=== PATIENT | female | born 1960 | race Caucasian/White ===

== ENCOUNTER 2019-03-15 14:45 | Emergency (ER) | payer SELFPAY ==
[2019-03-15 14:48] VITALS: BP 141/71; PULSE 71; RESP 16; TEMP 36.6; O2SAT 99
--- NOTE | 2019-03-15 16:36 | ED.GENADUL_ITS ---
Discharge Plan Disposition Patient Disposition: HOME Condition: Stable Discharge Details Chief Complaint: Nk/Back Pain Clinical Impression: Low back pain Primary Care Provider: None,None ED Provider: Aure Sarkar Home Meds and New Rx's Prescriptions: New cyclobenzaprine 10 mg tablet 10 mg PO BID PRN (Reason: muscle spasm) Qty: 8 RF: 0 Discharge Instructions Instructions: Cyclobenzaprine (By mouth), Low Back Strain (ED) Additional Instructions: Please return immediately to the emergency department if you develop any new or worsening symptoms, if your symptoms do not improve as expected, or if you become otherwise concerned. It is extremely important that you call as soon as possible to make an appointment to be seen in follow-up for this visit by a primary care doctor. Stand Alone Forms: Work Release Discharge Data Discharge Date/Time-TO BE ENTERED AT DEPARTURE: 03/15/19 16:45 Medical Decision Making Leonor Gutierrez is a 58-year-old woman with a history of fibromyalgia who presents the emergency department with acute on chronic mid low back pain that began 4 days ago after twisting injury when she tripped without falling. On exam patient is very well and nontoxic appearing, appears comfortable. Midline tenderness at the L5-S1 area that patient reports is her usual area of pain but worse than usual. No crepitus or deformity. No paraspinal tenderness to palpation. Motor 5 out of 5 bilateral lower extremities. DP pulses intact and symmetric, feet warm and well-perfused bilaterally. Normal gait. Exam/history is not consistent with cauda equina syndrome, epidural abscess/hematoma, other spinal cord involvement or compression, sepsis, infectious etiology of symptoms, CVA. Concern for disc herniation versus muscle spasm versus other nonemergent muscular skeletal etiology. I did offer patient x-rays given midline tenderness for rule out possible pathologic fracture, however she declined this testing at this time. She also declined steroids, but accepted muscle relaxant for treatment. I had a lengthy discussion with the patient regarding return to emergency department precautions, importance of outpatient follow-up, and home care. Patient states that she just recently moved to the area and does not currently have a PCP. Patient placed on care management list for establishment of PCP. Patient verbalized understanding the plan was amenable. All questions were answered. Patient was discharged home with clear plan for outpatient follow-up. Medical Records Medical records reviewed: Yes I reviewed the patient's medical records. HPI General Mode of arrival: ambulatory . Date/Time Provider Initiated Documentation: 03/15/19 14:52 . Limitations to Documentation: no limitations . Information obtained by: patient . HPI Narrative: Leonor Gutierrez is a 58-year-old woman with a history of fibromyalgia presenting to the emergency department with low back pain. Patient reports that 4 days ago she was at work when she tripped on a rubber mat on the floor, twisting her torso. She did not fall to the ground, no other injury. Patient reports that she has chronic pain in her mid low back secondary to her fibromyalgia, however she reports that since this twisting injury 4 days ago her typical mid low back pain has been worse. Patient reports that pain is worse at night when she is trying to get to sleep. She also notes that at times pain radiates from her mid lower back into her right leg. Patient reports that she has been able to walk without issue, but that standing for prolonged periods of time also seems to worsen her pain. Patient reports that she has had similar episodes of worsening of her chronic back pain in the past. Patient denies any other pain, shortness of breath, cough, fever, vomiting, diarrhea, urinary hesitancy, urinary incontinence, c onstipation, diarrhea, perianal sensation changes, sensation changes in the saddle region, other numbness, weakness, rash. Patient is a current smoker, denies alcohol, denies any history of IV drug use. Denies blood thinners other than ibuprofen. Related Data Home Medications Medication Instructions Recorded Confirmed cyclobenzaprine 10 mg PO BID PRN #8 tab 03/15/19 Previous Rx's Medication Instructions Recorded cyclobenzaprine 10 mg PO BID PRN #8 tab 03/15/19 Allergies Allergy/AdvReac Type Severity Reaction Status Date / Time No Known Allergies Allergy Unverified 03/15/19 14:53 General Stated Complaint: Nk/Back Pain RENETTA: 4 Review of Systems Review of Systems Narrative: Constitutional: denies fevers Eyes: denies eye pain ENT: denies facial pain, dental pain, sore throat Cardiovascular: denies chest pain, edema Respiratory: denies SOB, cough GI: denies abdominal pain, vomiting, diarrhea, constipation : denies flank pain, difficulty with urination, dysuria, incontinence MSK: denies neck pain, arthralgias, reports back pain, leg pain as per HPI Skin: denies rash Neuro: denies headaches, perianal numbness, saddle numbness, numbness the extremities, weakness PFSH Social History Substance use type: does not use Exam Narrative Exam Narrative: Constitutional: well and [id number], pleasant, conversing normally HENT: head atraumatic/normocephalic/normal inspection, mucous membranes moist Eyes: conjunctiva normal, sclera normal, pupils 3mm b/l Neck: no stridor, normal ROM, trachea midline Resp: normal work of breathing, LCTAB Cardio: normal rate, normal rhythm, no murmur appreciated GI: abdomen soft, non-tender, non-distended Back: normal inspection, no rash, midline tenderness at the L5-S1 area that patient reports is her usual area of pain but worse than usual, no crepitus or deformity, no paraspinal tenderness to palpation Skin: warm, dry, normal color, no rash Neuro: alert, not altered, grossly non-focal, normal tone, motor 5 out of 5 bilateral lower extremities, normal sensation of the lower extremities and saddle region, normal gait Ext: no edema, DP pulses intact and symmetric, feet warm and well-perfused bilaterally Psych: normal mood, normal affect, normal behavior Course Vital Signs Vital signs: Vital Signs Temperature 36.6 C 03/15/19 14:48 Pulse 71 03/15/19 14:48 Respiratory Rate 16 03/15/19 14:48 Blood Pressure 141/71 H 03/15/19 14:48 Pulse Oximetry 99 03/15/19 14:48 Temperature 36.6 C 03/15/19 14:48 Temperature Source Skin 03/15/19 14:48 Pulse 71 03/15/19 14:48 Respiratory Rate 16 03/15/19 14:48 Respiratory Effort 03/15/19 14:53 Blood Pressure 141/71 H 03/15/19 14:48 Pulse Oximetry 99 03/15/19 14:48 Oxygen Delivery Method Room Air 03/15/19 14:48 Oxygen Flow Rate 0 03/15/19 14:48 Pain Level 6 03/15/19 14:53 Comment 03/15/19 14:48
== END 2019-03-15 16:45 | disposition home or self-care (01) ==
PROVIDERS: Emergency Provider Student in an Organized Health Care Education/Training Program
DX: M54.5 Low back pain (principal); G89.29 Other chronic pain; W18.49XA Other slipping, tripping and stumbling without falling, initial encounter
CPT/HCPCS: 99283

== ENCOUNTER 2019-05-01 15:55 | Emergency (ER) | payer SELFPAY ==
[2019-05-01 15:58] VITALS: BP 152/76; PULSE 76; RESP 18; TEMP 36.7; O2SAT 98
--- NOTE | 2019-05-01 16:39 | W.ED.GENAD ---
Discharge Plan Disposition Patient Disposition: HOME Condition: Good Discharge Details Chief Complaint: Sorethroat Clinical Impression: URI (upper respiratory infection) Primary Care Provider: None,None ED Provider: Bridget Lawson Home Meds and New Rx's Prescriptions: No Action No Known Home Meds RF: 0 Discharge Instructions Instructions: Upper Respiratory Infection (ED) Additional Instructions: Encourage hydration. Stop smoking. May continue with the Mucinex, [place] pot, Tylenol and/or ibuprofen as needed. If not improved in 1 week please follow-up with your primary care. If you develop difficulty breathing, shortness of breath, inability stay hydrated or other new/worsening symptoms please seek care urgently once again. Her illness is likely viral. Stand Alone Forms: Work Release Discharge Data Discharge Date/Time-TO BE ENTERED AT DEPARTURE: 05/01/19 16:53 Medical Decision Making On exam, patient is resting comfortably, appears nontoxic. Endorses some discomfort with percussion over the maxillary sinuses bilaterally. Normal posterior oropharynx. Lungs are clear. No significant abnormality noted on exam. Encourage smoking cessation. We discussed home and [id number] options for symptom medic management. She is given return precautions. Advise follow-up with primary care in 1 week if not improving. We did discuss expected course. Antibiotic stewardship education was given. All her questions and concerns were addressed she is in agreement with this plan. HPI General Mode of arrival: ambulatory. Date/Time Provider Initiated Documentation: 05/01/19 16:15. Limitations to Documentation: no limitations. Information obtained by: patient and RN notes reviewed. HPI Narrative: Patient is a 58-year-old female past medical history significant for smoking, with chief complaint of sore throat, congestion, cough. Her primary concern is regarding sinus discomfort. She reports that symptoms began 2 days ago. States that yesterday she is running a low-grade fever of 100.2 Fahrenheit. Has been around a number of sick contacts. Denies any difficulty breathing, no shortness of breath. Has been able to stay hydrated. She has been using a [place] pot, Afrin, Mucinex. Related Data Home Medications Medication Instructions Recorded Confirmed Unknown [No Known Home Meds] 05/01/19 05/01/19 Allergies Allergy/AdvReac Type Severity Reaction Status Date / Time No Known Allergies Allergy Unverified 05/01/19 16:01 General Stated Complaint: Sorethroat RENETTA: 4 Review of Systems Constitutional Constitutional: Reports as per HPI, Denies chills, Denies fatigue, Denies fever(s), Denies headache(s) and Denies poor appetite Eyes Eyes: Reports as per HPI, Denies eye discharge and Denies irritation ENT Ears, Nose, Mouth, and Throat: Reports as per HPI and Denies headache(s) Cardiovascular Cardiovascular: Reports as per HPI, Denies chest pain and Denies dyspnea Respiratory Respiratory: Reports as per HPI, Denies change in phlegm color, Denies chest congestion, Reports cough, Denies hemoptysis, Denies excessive phlegm production, Denies pain on inspiration, Denies pain with cough, Denies dyspnea, Denies stridor and Denies wheezing Gastrointestinal Gastrointestinal: Reports as per HPI, Denies abdominal pain, Denies change in bowel habits, Denies nausea and Denies vomiting Integumentary/Breasts Skin/Breast: Reports as per HPI and Denies rash Neurologic Neurologic: Reports as per HPI and Denies headache(s) Endocrine Endocrine: Denies fatigue Allergic/Immunologic Allergic/Immunologic: Denies wheezing [facility] Social History Substance use type: does not use Exam Const General: cooperative, healthy appearing, comfortable, no acute distress, well developed and well groomed Nutritional Appearance: average body habitus and well nourished Orientation: alert and awake [facility] Head: normal to inspection, normocephalic and atraumatic Ears: hearing grossly normal bilaterally, external ears normal and TM's normal bilaterally General nose exam: external nose normal and nares normal Face and sinus: normal facial exam, face symmetric and sinus tenderness maxillary Mouth: oral mucosae normal, lip normal, tongue normal, oropharynx normal and moist mucous membranes Teeth and gingiva: dentition normal Throat: posterior oropharynx normal, tonsils normal and uvula midline Eyes General: appearance normal, both eyes and all related structures Neck Neck: normal visual inspection, full ROM, no lymphadenopathy and no meningeal signs Resp Effort & Inspection: normal respiratory effort, able to speak in complete sentences and no respiratory distress Auscultation: clear to auscultation bilaterally, no rales, no rhonchi and no wheezes Cardio Rate: regular rate Rhythm: regular rhythm Heart Sounds: S1 normal and S2 normal Skin General skin exam: no rashes or lesions noted Neuro General: alert and awake Cognition: normal cognition Speech: speech normal Gait: normal gait Psych Appearance: grossly normal and well kempt Mental Status: mental status grossly normal Speech and Movement: speech and movement normal Course Vital Signs Vital signs: Vital Signs Temperature 36.7 C 05/01/19 15:58 Pulse 76 05/01/19 15:58 Respiratory Rate 18 05/01/19 15:58 Blood Pressure 152/76 H 05/01/19 15:58 Pulse Oximetry 98 05/01/19 15:58 Temperature 36.7 C 05/01/19 15:58 Temperature Source Skin 05/01/19 15:58 Pulse 76 05/01/19 15:58 Respiratory Rate 18 05/01/19 15:58 Respiratory Effort 05/01/19 16:00 Blood Pressure 152/76 H 05/01/19 15:58 Blood Pressure Position Supine 05/01/19 15:58 Pulse Oximetry 98 05/01/19 15:58 Oxygen Delivery Method Room Air 05/01/19 15:58 Oxygen Flow Rate 0 05/01/19 15:58 Pain Level 6 05/01/19 15:58
== END 2019-05-01 16:53 | disposition home or self-care (01) ==
PROVIDERS: Emergency Provider Physician Assistant
DX: J06.9 Acute upper respiratory infection, unspecified (principal); F17.210 Nicotine dependence, cigarettes, uncomplicated
CPT/HCPCS: 99282

== ENCOUNTER 2020-01-06 14:25 | Emergency (ER) | payer SELFPAY ==
[2020-01-06] VITALS (11 sets, daily range): BP systolic 131–149; BP diastolic 73–83; PULSE 72–97; RESP 12–28; TEMP 36.7–36.8; O2SAT 96–99
--- NOTE | 2020-01-06 14:30 | DI.RAD_ITS ---
EXAM: XR PORTABLE CHEST AP CLINICAL HISTORY: SOB TECHNIQUE: 2D digital imaging was performed. COMPARISON: No exams were available for comparison FINDINGS: MEDIASTINUM: Normal. HEART: Normal. PULMONARY VASCULATURE: Normal. LUNGS: Clear. PLEURAL SPACE: No pleural effusion or pneumothorax. BONE:Normal. OTHER FINDINGS:Normal. IMPRESSION: No acute pulmonary findings. DATA REPOSITORY: RADIATION DOSE DELIVERED:
--- NOTE | 2020-01-06 14:47 | W.ED.GENAD ---
Discharge Plan Disposition Patient Disposition: HOME Condition: Stable Discharge Details Chief Complaint: SOB Clinical Impression: Asthma exacerbation Primary Care Provider: Rachel Lanza ED Provider: Aure Sarkar Home Meds and New Rx's Prescriptions: New prednisone 50 mg tablet 50 mg PO DAILY Qty: 4 RF: 0 albuterol sulfate 1.25 mg/3 mL solution for nebulization 1.25 mg IH QID PRNQty: 75 RF: 0 albuterol sulfate 90 mcg/actuation HFA aerosol inhaler 2 puff IH Q6H PRNQty: 6.7 RF: 3 Continued CBD OIL bottle 15 - 20 mg PO DAILY RF: 0 Flovent HFA 110 mcg/actuation HFA aerosol inhaler 2 puff IH BID Qty: 12 RF: 0 albuterol sulfate 90 mcg/actuation HFA aerosol inhaler 2 puff IH Q4H PRN (Reason: shortness of breath or wheezing) Qty: 18 RF: 6 Discharge Instructions Instructions: Albuterol (By breathing), Prednisone (By mouth), Asthma (ED) Referrals: Rachel Lanza, SENIOR SOFTWARE DEVELOPMENT MANAGER [Primary Care Provider] - Discharge Data Discharge Date/Time-TO BE ENTERED AT DEPARTURE: 01/06/20 16:35 Medical Decision Making Leonor Gutierrez is a 59 y/o patient with a h/o asthma who presented to the ED with 2-3 days of SOB. On exam Pt well and non-toxic appearing. Mild tachypnea, diffuse wheeze b/l on auscultation. Concern for likely asthma exacerbation, possible PNA, possible COVID. Exam/hx at this time not c/w acute coronary syndrome, pulmonary embolism, acute aortic pathology, CHF. Plan for ipratropium/albuterol inhaler (no neb 2/2 covid protocol), CXR, covid screening. Pt reporting complete resolution of symptoms after meds. Plan for prednisone. CXR neg. I had a lengthy discussion with Patient regarding return to emergency department precautions, home care, and importance of outpatient follow-up. Pt verbalizes understanding of the plan and is amenable. Patient discharged to home with clear plan for outpatient follow-up. All questions were answered. Disposition decision was made weighing the risks and benefits of hospitalization versus outpatient treatment, the risk for further decompensation, and the patient's wishes. Medical Records Medical records reviewed: Yes I reviewed the patient's medical records. Imaging Data Radiologic Study: Attestation: I personally reviewed and interpreted this imaging study as follows: Radiologist's impression: Exam: XR Chest, 1 View Exam date and time: 01/06/2020 3:46 PM Age: 59 years old Clinical indication: Other: SOB TECHNIQUE: Imaging protocol: XR of the chest Views: 1 view. COMPARISON: No relevant prior studies available. FINDINGS: Lungs: Unremarkable. No consolidation. Pleural space: Unremarkable. No pleural effusion. No pneumothorax. Heart/Mediastinum: Unremarkable. No cardiomegaly. Bones/joints: Unremarkable. IMPRESSION: No acute findings. HPI General Mode of arrival: ambulatory. Date/Time Provider Initiated Documentation: 01/06/20 14:38. Limitations to Documentation: no limitations. Information obtained by: patient, RN notes reviewed and old records reviewed. HPI Narrative: Leonor Gutierrez is a 59 y/o woman with reported h/o asthma presenting to the emergency department with SOB. Pt reports that over the past 2-3 days she has noticed increase in wheezing and has been using her albuterol inhaler more frequently. Used her inhaler 4 times today. Pt reports that this feels similar to prior exacerbations, though somewhat worse in severity. No pain, no fever, no vomiting, no recent illness. Reports cough as is typical when she has wheezing. Has been eating and drinking as usual. No recent travel or known covid contacts. No recent immolbility. No h/o blood clots. Related Data Home Medications Medication Instructions Recorded Confirmed CBD OIL 15 - 20 mg PO DAILY 08/20/19 01/06/20 fluticasone propionate 110 2 puff IH BID #12 gm 08/20/19 08/20/19 mcg/actuation HFA aerosol inhaler albuterol sulfate 90 mcg/actuation 2 puff IH Q4H PRN #18 gm 12/11/19 01/06/20 aerosol inhaler albuterol sulfate 1.25 mg IH QID PRN #75 ml 01/06/20 albuterol sulfate 2 puff IH Q6H PRN #6.7 gm 01/06/20 prednisone 50 mg PO DAILY #4 tab 01/06/20 Previous Rx's Medication Instructions Recorded fluticasone propionate 110 2 puff IH BID #12 gm 08/20/19 mcg/actuation HFA aerosol inhaler albuterol sulfate 90 mcg/actuation 2 puff IH Q4H PRN #18 gm 12/11/19 aerosol inhaler albuterol sulfate 1.25 mg IH QID PRN #75 ml 01/06/20 albuterol sulfate 2 puff IH Q6H PRN #6.7 gm 01/06/20 prednisone 50 mg PO DAILY #4 tab 01/06/20 Allergies Allergy/AdvReac Type Severity Reaction Status Date / Time No Known Allergies Allergy Unverified 01/06/20 14:33 General Stated Complaint: SOB RENETTA: 2 Review of Systems Narrative: Constitutional: denies fevers Eyes: denies eye pain ENT: denies ear pain, dental pain, sore throat Cardiovascular: denies chest pain, edema Respiratory: reports SOB, cough GI: denies abdominal pain, vomiting : denies flank pain MSK: denies back pain, neck pain, arthralgias, myalgias Skin: denies rash Neuro: denies headaches, numbness, weakness PFSH Family History (Updated 08/20/19 @ 10:48 by Rachel Lanza NP) Mother , age 64 Bone cancer Breast cancer Father Asthma Heart disease Hyperlipidemia Hypertension Brother No problems noted. Sister Fibromyalgia Maternal Grandmother Cancer Leukemia Paternal Grandmother Heart disease Social History (Updated 07/19/19 @ 07:08 by Keenan Klein) Smoking/Tobacco Use Status: Current every day Quit status: has quit before Alcohol Intake: current Alcohol Intake frequency: holidays/special occasions only Drug use: Daily Substance use type: does not use Details: CBD oil Pets and animals: No Sexually active: Yes Do you think of yourself as: straight/heterosexual Current gender identity: female What is your relationship status?: How often do you talk on the phone with friends or family?: three or more times per week How often do you get together with friends or relatives?: once per week How often do you attend mosque or temple services?: 1-3 times per year Do you belong to any clubs or organized social groups?: no Panel score (0-1 are the most socially isolated patients): 1 What type of physical activity do you participate in: decline to answer Duration: decline to answer Frequency: decline to answer Marah/Uatsdin: Episcopal Special marah needs: No Seatbelt use: always Helmet use: Yes Helmet use: sometimes Drive intox or ride w/intox [employer] truck driver: No Do you feel safe at home: Yes Do you feel safe in your relationship?: Yes Exam Narrative Exam Narrative: Constitutional: well and [id number], pleasant, conversing normally HENT: head atraumatic/normocephalic/normal inspection, mucous membranes moist Eyes: conjunctiva normal, sclera normal, pupils 3mm b/l Neck: no stridor, normal ROM, trachea midline Chest: normal inspection Resp: tachypnea, able to speak in full sentences, diffuse wheezing throughout b/l, no rales or rhonchi Cardio: normal rate, normal rhythm, no murmur appreciated Back: normal inspection, no rash Skin: warm, dry, normal color, no rash Neuro: alert, not altered, grossly non-focal, normal tone Ext: no edema, no posterior calf TTP Psych: normal mood, normal affect, normal behavior Course Vital Signs Vital signs: Vital Signs Temperature 36.7 C 01/06/20 14:29 Pulse 97 H 01/06/20 14:29 Respiratory Rate 28 H 01/06/20 14:29 Blood Pressure 149/83 H 01/06/20 14:29 Pulse Oximetry 98 01/06/20 14:29 Temperature 36.7 C 01/06/20 14:29 Temperature Source Temporal Artery Scan 01/06/20 14:29 Pulse 97 H 01/06/20 14:29 Respiratory Rate 28 H 01/06/20 14:29 Respiratory Effort Labored 01/06/20 14:32 Blood Pressure 149/83 H 01/06/20 14:29 Blood Pressure Position Sitting 01/06/20 14:29 Pulse Oximetry 98 01/06/20 14:29 Oxygen Delivery Method Room Air 01/06/20 14:29 Oxygen Flow Rate 0 01/06/20 14:29 Pain Level 1 01/06/20 14:29
[2020-01-06] MEDS: Ipratropium/Albuterol 4 GM 120 PUFF INH IH (14:53)
[2020-01-06] MEDS: methylPREDNISolone SUCC 125 MG VIAL IVP (14:58)
--- NOTE | 2020-01-06 15:59 | RESPIRATORY ---
01/06/2020-Called to ED for Combivent MDI instruction. Upper right wheeze noted with Lower left, as well. Pt was having a hard time talking in full sentences before Combivent dosages. Pt stated she could feel the difference in the MDI working after two puffs. We discussed that she just moved here from [place] and has just set up with a new Primary, B[facility]bara Lanza at [facility] .pt states she has never had a PFT before. I discussed the advantages of her having one as a f/u. She does not have a nebulizer either. Will set up with one today. All this was discussed with Dr. Basim Sarkar and she agreed. Nebulizer and spacer was given and instructed on. Relayed to Pt she would be getting a call to schedule her PFT in the next few days.
--- NOTE | 2020-01-06 16:33 | DI.VRAD_ITS ---
PROCEDURE INFORMATION: Exam: XR Chest, 1 View Exam date and time: 01/06/2020 3:46 PM Age: 59 years old Clinical indication: Other: SOB TECHNIQUE: Imaging protocol: XR of the chest Views: 1 view. COMPARISON: No relevant prior studies available. FINDINGS: Lungs: Unremarkable. No consolidation. Pleural space: Unremarkable. No pleural effusion. No pneumothorax. Heart/Mediastinum: Unremarkable. No cardiomegaly. Bones/joints: Unremarkable. IMPRESSION: No acute findings. Dictated and Authenticated by: Sunil Bauman MD. Ordering:LILLIE Looney MD
--- NOTE | 2020-01-06 17:23 | NUR.NOTE ---
Nursing Note: Referral to PCP for follow up this week. Etta Chambers
[2020-01-07 00:41] LABS: COVID-19 RT-PCR UVMMC Result Negative (Negative)
--- NOTE | 2020-01-07 08:43 | NUR.NOTE ---
0845--Leonor Gutierrez notified of negative result---she stated that she has a butterfly rash across her nose and cheeks--was started on prednisone yesturday---reviewed with Dr Cooper-advised to f/u with pcp---return to er if spreading /worsening sob/concerning sx. Pt verbalized understanding. wiNursing Note:
== END 2020-01-06 16:35 | disposition home or self-care (01) ==
LOC: ER 16:40
PROVIDERS: Emergency Provider Student in an Organized Health Care Education/Training Program; PCP Nurse Practitioner
DX: J45.901 Unspecified asthma with (acute) exacerbation (principal); Z03.818 Encounter for observation for suspected exposure to other biological agents ruled out
CPT/HCPCS: 94640; 96374; 99284; U0003; 71045; J2930; J3490

== ENCOUNTER 2021-05-07 15:16 | Outpatient (REF) | payer SELFPAY ==
[2021-05-09 14:19] LABS: COVID-19 RT-PCR UVMMC Result Negative (Negative)
== END 2021-05-07 15:17 | disposition home or self-care (01) ==
LOC: LBN 15:16
PROVIDERS: PCP Nurse Practitioner; Visit Provider Family Medicine
DX: Z20.822 Contact with and (suspected) exposure to COVID-19 (principal)
CPT/HCPCS: U0003

== ENCOUNTER 2021-07-13 14:47 | Outpatient (REF) | payer SELFPAY ==
--- NOTE | 2021-07-13 14:15 | PAPFT_PTH ---
PATIENT: Leonor Gutierrez LOC: [facility] U#:[id number] AGE/SX: 61/F ROOM: RE07/13/[address]: Rachel Lanza, PhD BUSINESS SERVICES ASSISTANT : 1960 BED: DIS: 07/13/2021 SPEC #: [id number] RECD: 07/13/21 17:52 STATUS: GLORIA REQ #: [id number] NORBERT: 07/13/21 14:[address]: Rachel Lanza DEPT: [facility] Cytology RECD BY: Vivi Dumont Tissues: 1 - CX/ENDOCX FOR PAP SMEARS Procedures: PAP THIN PREP/UVM Screening HPV DNA PROBE Comments: [id number]
== END 2021-07-13 14:48 | disposition home or self-care (01) ==
LOC: LBN 14:47
PROVIDERS: PCP Nurse Practitioner; Visit Provider Nurse Practitioner
DX: Z12.4 Encounter for screening for malignant neoplasm of cervix (principal); Z11.51 Encounter for screening for human papillomavirus (HPV); R87.810 Cervical high risk human papillomavirus (HPV) DNA test positive
CPT/HCPCS: 88142; 87624

== ENCOUNTER 2023-07-25 14:10 | Emergency (ER) | payer SELFPAY ==
[2023-07-25 14:14] VITALS: BP 141/76; PULSE 75; RESP 17; TEMP 36.5; O2SAT 98
--- NOTE | 2023-07-25 14:30 | RT.EKG_ITS ---
APPROVED REPORT Exam: Resting ECG Reason for Exam: luq pain Patient Location: E HR:67 bpm ECG Measurements Heart Rate 67 AXIS OH 160 P 34 QRSd 84 QRS 46 QT 403 T 44 QTc 426 Conclusion Sinus rhythm normal axis no stemi
[2023-07-25 14:35] LABS: Abs Immature Grans 0.02 10^3/uL (0.0-0.06); Absolute Basophil Count 0.08 10^3/uL (0.0-0.2); Absolute Eosinophil Count 0.16 10^3/uL (0.0-0.7); Absolute Lymphocyte Count 2.14 10^3/uL (1.2-3.4); Absolute Monocyte Count 0.42 10^3/uL (0.1-0.8); Absolute Neutrophil Count 5.31 10^3/uL (1.2-6.7); HCT 45.2 % (36.0-46.0); HGB 14.8 g/dL (11.2-15.7); Immature Grans % 0.2; Lymphocytes % 26.3; MCH 28.4 pg (27.0-33.0); MCHC 32.7 % (32.0-36.0); MCV 87 fL (80-95); MPV 9.8 fL (8.0-11.0); Monocytes % 5.2; Neutrophils % 65.3; Platelet Count 312 10^3/uL (130-400); RBC 5.22 10^6/uL (3.93-5.22); RDW 13.2 % (11.7-14.6); RDW-SD 41.5 fL; WBC 8.13 10^3/uL (4.4-10.8)
[2023-07-25 14:54] LABS: ALT 24 U/L (14-59); AST 20 U/L (15-37); Albumin 4.1 g/dL (3.4-5.0); Alkaline Phosphatase 115 U/L (46-116); Anion Gap 6.9 mmol/L (3-11); BUN 14 mg/dL (7-18); Bilirubin, Total 0.3 mg/dL (0.2-1.0); CO2 30.1 mmol/L (21.0-32.0); CREATININE 0.7 mg/dL (0.55-1.02); Calcium 9.5 mg/dL (8.5-10.1); Chloride 105 mmol/L (98-107); Estimated GFR 98.34 (mL/min/1.73m2); Glucose 97 mg/dL (74-106); Lipase 42 U/L (16-77); Potassium 3.9 mmol/L (3.5-5.1); Sodium 142 mmol/L (136-145); Total Protein 7.9 g/dL (6.4-8.2)
[2023-07-25] MEDS: Omnipaque 350 MG/ML 100 ML BTL IJ (15:19)
[2023-07-25] MEDS: Normal Saline - Diluent 50 ML VIAL IJ (15:20)
[2023-07-25] MEDS: Normal Saline Flush 10 ML SYR IVP (15:21)
--- NOTE | 2023-07-25 15:21 | DI.CT_ITS ---
Exam(s) CT ABDOMEN PELVIS W EXAM: CT ABDOMEN PELVIS W CLINICAL HISTORY: luq pain, weightloss. TECHNIQUE: Imaging Protocol: Axial computed tomography images with coronal and sagittal reformatted images were created and reviewed CONTRAST MATERIAL: Intravenous: Omnipaque 350 Contrast volume:100 ml Oral: / no COMPARISON: No exams were available for comparison FINDINGS: ABDOMEN and PELVIS: Lung Bases: No acute findings. Liver: Normal density. No measurable mass. Gallbladder and biliary tract: No gallstones. No gallbladder wall thickening. Dilatation of the com mon bile duct 10 millimeters. Tapers at the pancreatic head. No visible mass. No duodenal divertic ulum visible. Mild intrahepatic biliary dilatation. Pancreas: Normal density. No abnormal calcifications or inflammatory process. No evidence of mass. Spleen: Normal. Kidneys: Normal size, contour and axis. No radiodense stones. No obstructive uropathy. Mildly promi nent bilateral extrarenal pelves. No suspicious masses seen. Adrenal glands: No masses seen. Vasculature: Abdominal aorta non-dilated. Soft tissues: Unremarkable. Bladder: No gross wall thickening. No calculi.No focal mass. Bowel: Large amount of stool seen at the hepatic flexure. Moderate quantity of stool elsewhere. No obstruction. No bowel wall thickening. Appendix normal. Peritoneal cavity: No ascites. No focal collection or mesenteric inflammatory response. Bones: Unremarkable for age. Reproductive organs: Within normal limits. Lymph nodes: Unremarkable. IMPRESSION:: Mild dilatation of the common bile duct which tapers in the pancreatic head. No eviden ce of cholelithiasis or common duct stone. No evidence of mass. RADIATION DOSE DELIVERED: 675.11mGy.cm Total DLP DATA REPOSITORY: All CT scans at this facility are submitted to the National Radiology Data Registry (NRDR) Dose Index Registry (DIR) with the [employer] (ACR). RADIATION OPTIMIZATION: All CT scans at this facility use at least one of these dose optimization te chniques: automated exposure control; mA and/or kV adjustment per patient size (includes targeted exa ms where dose is matched to clinical indication); or iterative reconstruction.
--- NOTE | 2023-07-25 15:27 | ED.GENADUL_ITS ---
HPI General Date/Time Provider Initiated Documentation: 07/25/23 14:25 . HPI Narrative: This 63-year-old female presents with left upper quadrant pain with bloating and 5 pound weight loss in the past couple months. She was sent here for additional assessment denies any nausea or vomiting. Denies any chest pain has had the abdominal pain for the past 1 month persistently. Denies blood in his stool. Smokes tobacco on a daily basis, history of COPD per patient. Denies any shortness of breath today. Denies any diarrhea. Related Data Home Medications Medication Instructions Recorded Confirmed CBD OIL 15 - 20 mg PO DAILY 08/20/19 07/25/23 albuterol sulfate 1.25 mg/3 mL 1.25 mg (3 mL) inhalation QID PRN 01/06/20 07/25/23 solution for nebulization #75 mL Ventolin HFA 90 mcg/actuation See Rx Instructions .Route 06/05/23 07/25/23 aerosol inhaler (albuterol sulfate) .COMPLEX #18 grams ibuprofen 200 mg tablet (Advil) 600 mg PO Q8H 07/25/23 07/25/23 Previous Rx's Medication Instructions Recorded albuterol sulfate 1.25 mg/3 mL 1.25 mg (3 mL) inhalation QID PRN 01/06/20 solution for nebulization #75 mL Ventolin HFA 90 mcg/actuation See Rx Instructions .Route 06/05/23 aerosol inhaler (albuterol sulfate) .COMPLEX #18 grams Allergies Allergy/AdvReac Type Severity Reaction Status Date / Time No Known Allergies Allergy Unverified 07/25/23 14:26 General Stated Complaint: Abd Prob RENETTA: 3 Course Vital Signs Vital signs: Vital Signs Temperature 36.5 C 07/25/23 14:14 Pulse 75 07/25/23 14:14 Respiratory Rate 17 07/25/23 14:14 Blood Pressure 141/76 H 07/25/23 14:14 Pulse Oximetry 98 07/25/23 14:14 Temperature 36.5 C 07/25/23 14:14 Temperature Source Temporal Artery Scan 07/25/23 14:14 Pulse 75 07/25/23 14:14 Respiratory Rate 17 07/25/23 14:14 Respiratory Effort Normal 07/25/23 14:31 Blood Pressure 141/76 H 07/25/23 14:14 Blood Pressure Position Supine 07/25/23 14:14 Pulse Oximetry 98 07/25/23 14:14 Oxygen Delivery Method Room Air 07/25/23 14:14 Oxygen Flow Rate 0 07/25/23 14:14 Pain Level 2 07/25/23 14:14 Lab/Test Results Lab/Test Results: Laboratory Tests Range/Units 07/25/23 14:28 WBC (4.4-10.8) 10^3/uL 8.13 RBC (3.93-5.22) 10^6/uL 5.22 Hgb (11.2-15.7) g/dL 14.8 Hct (36.0-46.0) % 45.2 MCV (80-95) fL 87 MCH (27.0-33.0) pg 28.4 MCHC (32.0-36.0) % 32.7 RDW (11.7-14.6) % 13.2 Plt Count (130-400) 10^3/uL 312 MPV (8.0-11.0) fL 9.8 Immature Gran % 0.2 Neutrophils % 65.3 Lymphocytes % 26.3 Monocytes % 5.2 Eosinophils % 2.0 Basophils % 1.0 Nucleated RBC % (0.0-0.3) % 0.0 Absolute Neutrophils (1.2-6.7) 10^3/uL 5.31 Absolute Lymphocytes (1.2-3.4) 10^3/uL 2.14 Absolute Monocytes (0.1-0.8) 10^3/uL 0.42 Absolute Eosinophils (0.0-0.7) 10^3/uL 0.16 Absolute Basophils (0.0-0.2) 10^3/uL 0.08 Sodium (136-145) mmol/L 142 Potassium (3.5-5.1) mmol/L 3.9 Chloride (98-107) mmol/L 105 Carbon Dioxide (21.0-32.0) mmol/L 30.1 Anion Gap (3-11) mmol/L 6.9 BUN (7-18) mg/dL 14 Creatinine (0.55-1.02) mg/dL 0.7 Est GFR (CKD-EPI 2020) (mL/min/1.73m2) 98.34 Glucose (74-106) mg/dL 97 Calcium (8.5-10.1) mg/dL 9.5 Total Bilirubin (0.2-1.0) mg/dL 0.3 AST (15-37) U/L 20 ALT (14-59) U/L 24 Alkaline Phosphatase (46-116) U/L 115 Total Protein (6.4-8.2) g/dL 7.9 Albumin (3.4-5.0) g/dL 4.1 Lipase (16-77) U/L 42 Medical Decision Making This 63-year-old female presents with left upper quadrant pain with bloating and 5 pound weight loss, patient states pain has been present for approximately 1 month. States that she was sent here secondary to insurance issues with covering CT scan Labs are reassuring without acute abnormality specifically no evidence of elevation in bilirubin, lipase, LFTs, leukocytosis Patient has no tenderness in the right upper quadrant, predominantly tenderness in the left upper quadrant and left lower quadrant, CT shows slight CBD dilation, no evidence of obvious stone, labs urine consistent with obstructive process and no tenderness in the right upper quadrant, encouraged to follow-up with primary care physician, may benefit from outpatient ultrasound and possible surgical follow-up in the outpatient setting Left upper quadrant tenderness likely related to significant stool burden in the hepatic flexure Patient is encouraged to start on MiraLAX regimen and to follow-up with primary care physician, she may need outpatient colonoscopy and endoscopy Return precautions are reviewed and patient expressed understanding, discharged home in stable condition with stable vitals Quality:SDOH Health Related Social Needs: No Data to Display PFSH All Active Problems (Updated 07/25/23 @ 15:47 by FAY Cortés) Abdominal pain (Acute) Left upper quadrant pain (Acute) Unexplained weight loss (Acute) Tobacco dependence (Acute) Asthma (Chronic) Elevated BP without diagnosis of hypertension (Acute) Fibromyalgia (Acute) BPPV (benign paroxysmal positional vertigo) (Chronic) Family History (Updated 08/20/19 @ 10:48 by Rachel Lanza NP) Mother , age 64 Bone cancer Breast cancer Father Asthma Heart disease Hyperlipidemia Hypertension Brother No problems noted. Sister Fibromyalgia Maternal Grandmother Cancer Leukemia Paternal Grandmother Heart disease Social History (Updated 07/13/21 @ 17:20 by Zaira Conrad) Smoking/Tobacco Use Status: Current-Occasional Tobacco Type: cigarettes Tobacco: How many years used: 30 Quit status: considering quitting Second Hand Exposure: Yes Smoking risk assessment performed?: Yes Alcohol Intake: former Drug use: Daily Substance use type: marijuana Details: CBD oil Caregiver/Support person: No Pets and animals: No Sexually active: No Do you think of yourself as: straight/heterosexual Current gender identity: female What is your relationship status?: How often do you talk on the phone with friends or family?: decline to answer How often do you get together with friends or relatives?: decline to answer How often do you attend christianity or baptism services?: decline to answer Do you belong to any clubs or organized social groups?: decline to answer Panel score (0-1 are the most socially isolated patients): 0 What type of physical activity do you participate in: walking Seatbelt use: always 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 Do you feel safe at home: Yes Do you feel safe in your relationship?: Yes Discharge Plan Disposition Patient Disposition: Home Discharge Details Clinical Impression: Abdominal pain Primary Care Provider: Karyn You ED Provider: Vivi Hernandez Home Meds and New Rx's Prescriptions: Continued CBD OIL bottle 15 - 20 mg PO DAILY albuterol sulfate [Ventolin HFA] 90 mcg/actuation HFA aerosol inhaler See Rx Instructions .ROUTE .COMPLEX Qty: 18 6RF Dose Instruction: INHALE TWO PUFFS BY MOUTH EVERY 6 HOURS NEEDED FOR FOR SHORTNESS OF BREATH OR WHEEZING Rx Instructions: INHALE TWO PUFFS BY MOUTH EVERY 6 HOURS NEEDED FOR FOR SHORTNESS OF BREATH OR WHEEZING albuterol sulfate 1.25 mg/3 mL solution for nebulization 1.25 mg IH QID PRNQty: 75 0RF ibuprofen [Advil] 200 mg tablet 600 mg PO Q8H Discharge Instructions Instructions: Abdominal Pain (ED) Additional Instructions: You have a large amount of stool in your colon, recommendation to start MiraLAX [id number] Labs do not show evidence of acute abnormality Increase fluid hydration Recommend outpatient endoscopy and colonoscopy should you have persistent pain Please return earlier should you have new or worsening complaints Referrals: Karyn You NP [Primary Care Provider] - Discharge Data Discharge Date/Time-TO BE ENTERED AT DEPARTURE: 07/25/23 15:56
[2023-07-25 15:40] LABS: Bilirubin Negative (Negative); Blood Trace-intact (Negative); Clarity Clear (Clear); Glucose Negative (Negative); Ketones Negative (Negative); Leukocyte Esterase Trace (Negative); Nitrite Negative (Negative); Specific Gravity 1.015 (1.005-1.025); Urobilinogen 0.2 mg/dL (Up to 0.2)
[2023-07-25 15:52] LABS: Bacteria Negative HPF (Negative); C & S Indicated? No; Crystals Negative HPF (Negative); Epithelial Cells Rare HPF (Negative); Mucus Negative (Negative); RBC 0-2 HPF (0-2); WBC 0-2 HPF (0-5)
== END 2023-07-25 15:56 | disposition home or self-care (01) ==
PROVIDERS: Emergency Provider Physician Assistant; PCP Nurse Practitioner Family
DX: R10.12 Left upper quadrant pain (principal); R63.4 Abnormal weight loss; J44.9 Chronic obstructive pulmonary disease, unspecified; F17.210 Nicotine dependence, cigarettes, uncomplicated
CPT/HCPCS: 80053; 83690; 93005; 99285; 74177; 81003; 81015; 85025; 93010; 99284; J3490